=== PATIENT | male | born 1975 | race Caucasian/White ===

== ENCOUNTER 2018-11-05 08:22 | Emergency (ER) | payer OTHER ==
[2018-11-05 08:27] VITALS: RESP 18; TEMP 97.9
[2018-11-05] MEDS ORDERED: SODIUM CHLORIDE 0.9% 2,000 ML IV STA (09:16)
[2018-11-05] MEDS ORDERED: DICYCLOMINE 10 MG/ML 2 ML AMP IM STA (09:16)
[2018-11-05] MEDS ORDERED: ONDANSETRON 4 MG/2 ML VIAL IVP STA (09:16)
[2018-11-05] MEDS ORDERED: PANTOPRAZOLE 40 MG/10 ML VIAL IVP STA (09:16)
--- NOTE | 2018-11-05 09:20 | ED ---
General Adult HPI - General Chief complaint: Nausea/Vomiting/Diarrhea Stated complaint: diarrhea Time Seen by Provider: 11/05/18 09:09 Source: patient, RN notes reviewed Mode of arrival: ambulatory Limitations: no limitations - History of Present Illness Initial comments: Patient is a 42-year-old male presenting to the emergency department with concerns for diarrhea. Onset of symptoms was 4-5 days ago. Patient is having diarrhea 5-6 times per day. Patient is having muscle cramps. No bloody stools. Patient has had some nausea and a couple episodes of vomiting. Patient has had decreased appetite. No abdominal pain. No abdominal cramping. No history of chronic diarrhea. Patient does have chronic reflux however has not had a scope done and stops seen his doctor. Patient also stopped taking his medication for reflux. Patient states he did not feel it was helping. - Related Data Home Medications Medication Instructions Recorded Confirmed Amoxic-Pot Clav 875-125Mg 1 tab PO BID 11/05/18 11/05/18 [Augmentin 875-125] D-Methorphan/PE/Acetaminophen 1 tab PO DAILY 11/05/18 11/05/18 [Theraflu Expressmax Day Caplet] Allergies Allergy/AdvReac Type Severity Reaction Status Date / Time No Known Allergies Allergy Verified 11/05/18 08:37 Review of Systems ROS Statement: Those systems with pertinent positive or pertinent negative responses have been documented in the HPI. ROS Other: All systems not noted in ROS Statement are negative. Constitutional: Denies: fever Eyes: Denies: eye pain ENT: Denies: ear pain Respiratory: Denies: cough, dyspnea Cardiovascular: Denies: chest pain Endocrine: Denies: fatigue Gastrointestinal: Reports: as per HPI, nausea, vomiting, diarrhea. Denies: abdominal pain Genitourinary: Denies: dysuria Musculoskeletal: Denies: back pain Skin: Denies: rash Neurological: Denies: weakness Past Medical History Past Medical History: No Reported History Additional Past Medical History / Comment(s): liver issues History of Any Multi-Drug Resistant Organisms: None Reported Past Surgical History: No Surgical Hx Reported Past Psychological History: No Psychological Hx Reported Smoking Status: Never smoker Past Alcohol Use History: None Reported Past Drug Use History: None Reported General Exam Limitations: no limitations General appearance: alert, in no apparent distress Head exam: Present: atraumatic Eye exam: Present: normal appearance, PERRL ENT exam: Present: normal oropharynx Neck exam: Present: normal inspection Respiratory exam: Present: normal lung sounds bilaterally Cardiovascular Exam: Present: regular rate, normal rhythm Expanded Peripheral pulses: 2+: Posterior Tibialis (R), Posterior Tibialis (L), Dorsalis Pedis (R), Dorsalis Pedis (L) GI/Abdominal exam: Present: soft, normal bowel sounds. Absent: distended, tenderness, guarding, rebound, rigid, pulsatile mass Extremities exam: Present: normal inspection, pedal edema. Absent: calf tenderness Neurological exam: Present: alert Psychiatric exam: Present: normal affect, normal mood Skin exam: Present: normal color Course Vital Signs 11/05/18 08:23 Temperature 97.9 F Pulse Rate 78 Respiratory 18 Rate Blood Pressure 132/83 O2 Sat by Pulse 99 Oximetry - Reevaluation(s) Reevaluation #1: 11/05/18 09:20 Patient states he has been taking his son's old amoxicillin for the diarrhea without improvement. Patient is advised against doing so. Medical Decision Making - Medical Decision Making Patient reevaluated and feeling much better. Patient is requesting discharge home. Patient refuses prescriptions. Patient is updated regarding changes with white blood cell count as well as platelet count. Patient questions if this could be from his previous liver disease years ago. Patient states he can follow-up with [facility] for this. Patient is also advised to follow-up with local primary care physician or the [facility]'s clinic. - Lab Data Result diagrams: 11/05/18 09:12 11/05/18 09:12 Lab Results 11/05/18 11/05/18 Range/Units 09:12 09:12 WBC 2.6 L (3.8-10.6) k/uL RBC 5.21 (4.30-5.90) m/uL Hgb 16.0 (13.0-17.5) gm/dL Hct 45.4 (39.0-53.0) % MCV 87.1 (80.0-100.0) fL MCH 30.6 (25.0-35.0) pg MCHC 35.2 (31.0-37.0) g/dL RDW 12.8 (11.5-15.5) % Plt Count 112 L (150-450) k/uL Neutrophils % (Manual) 38 % Band Neutrophils % 1 % Lymphocytes % (Manual) 37 % Monocytes % (Manual) 23 % Eosinophils % (Manual) 1 % Neutrophils # (Manual) 1.00 L (1.3-7.7) k/uL Lymphocytes # (Manual) 0.96 L (1.0-4.8) k/uL Monocytes # (Manual) 0.60 (0-1.0) k/uL Eosinophils # (Manual) 0.03 (0-0.7) k/uL Nucleated RBCs 0 (0-0) /100 WBC Manual Slide Review Performed RBC Morphology Normal Sodium 139 (137-145) mmol/L Potassium 5.2 H (3.5-5.1) mmol/L Chloride 104 (98-107) mmol/L Carbon Dioxide 27 (22-30) mmol/L Anion Gap 8 mmol/L BUN 9 (9-20) mg/dL Creatinine 0.77 (0.66-1.25) mg/dL Est GFR (CKD-EPI)AfAm >90 (>60 ml/min/1.73 sqM) Est GFR (CKD-EPI)NonAf >90 (>60 ml/min/1.73 sqM) Glucose 91 (74-99) mg/dL Calcium 9.3 (8.4-10.2) mg/dL Total Bilirubin 0.5 (0.2-1.3) mg/dL AST 34 (17-59) U/L ALT 34 (21-72) U/L Alkaline Phosphatase 64 (38-126) U/L Total Protein 7.3 (6.3-8.2) g/dL Albumin 4.3 (3.5-5.0) g/dL Amylase 69 (30-110) U/L Lipase 137 (23-300) U/L Disposition Clinical Impression: Diarrhea Disposition: HOME SELF-CARE Condition: Stable Instructions: Acute Diarrhea (ED) Additional Instructions: Please follow-up with primary care physician in the next couple of days for recheck. You may also [facility]. Also recommend following up with [facility] regarding your previous liver disease. [id number] Imodium as needed. Increase fluid intake. Consider endoscopy. Return for not able to tolerate fluids, pain, fevers, uncontrolled diarrhea, worsening symptoms or other concerns. Is patient prescribed a controlled substance at d/c from ED?: No Referrals: Ahsan Mcmillan MD [STAFF PHYSICIAN] - 1-2 days Nilam Poole MD [STAFF PHYSICIAN] - 1-2 days Time of Disposition: 12:02
[2018-11-05 09:52] LABS: ALT 34 U/L (21-72); AST 34 U/L (17-59); Albumin 4.3 g/dL (3.5-5.0); Alkaline Phosphatase 64 U/L (38-126); Amylase 69 U/L (30-110); Anion Gap 8 mmol/L; Blood Urea Nitrogen 9 mg/dL (9-20); Calcium 9.3 mg/dL (8.4-10.2); Carbon Dioxide 27 mmol/L (22-30); Chloride 104 mmol/L (98-107); Glucose 91 mg/dL (74-99); Lipase 137 U/L (23-300); Potassium 5.2 mmol/L (3.5-5.1); Sodium 139 mmol/L (137-145); Total Bilirubin 0.5 mg/dL (0.2-1.3); Total Protein 7.3 g/dL (6.3-8.2)
[2018-11-05 09:55] LABS: HCT 45.4 % (39.0-53.0); MCH 30.6 pg (25.0-35.0); MCHC 35.2 g/dL (31.0-37.0); MCV 87.1 fL (80.0-100.0); Mean Platelet Volume 7.6; Platelet Count 112 k/uL (150-450); RBC 5.21 m/uL (4.30-5.90); RDW 12.8 % (11.5-15.5); WBC 2.6 k/uL (3.8-10.6)
[2018-11-05 10:12] LABS: Band Neutrophils % 1 %; Eosinophils # (M) 0.03 k/uL (0-0.7); Lymphocytes # (M) 0.96 k/uL (1.0-4.8); Neutrophils % (M) 38 %; Nucleated Red Blood Cells 0 /100 WBC (0-0); Total Cells Counted 100
[2018-11-05 12:07] LABS: Appearance,Urine Clear (Clear); Bilirubin,Urine Negative (Negative); Blood,Urine Negative (Negative); Color,Urine Light Yellow; Glucose,Urine (UA) Negative (Negative); Ketones,Urine Negative (Negative); Leukocyte Esterase,Urine Negative (Negative); Nitrite,Urine Negative (Negative); Protein,Urine Negative (Negative); Specific Gravity,Urine 1.004 (1.001-1.035); Urobilinogen,Urine <2.0 mg/dL (<2.0)
[2018-11-05 12:42] VITALS: BP 118/85; PULSE 62
== END 2018-11-05 12:39 | disposition home or self-care (01) ==
LOC: EC 08:22
DX: R19.7 Diarrhea, unspecified (principal); R11.2 Nausea with vomiting, unspecified; R25.2 Cramp and spasm; Z79.891 Long term (current) use of opiate analgesic; Z79.899 Other long term (current) drug therapy; Z53.20 Procedure and treatment not carried out because of patient's decision for unspecified reasons
CPT/HCPCS: 99284; 96374; 96375; 96361; 96372; 36415; 80053; 82150; 83690; 85025; 81003; J0500; J2405; C9113

== ENCOUNTER 2019-12-20 16:12 | Emergency (ER) | payer OTHER ==
[2019-12-20 16:17] VITALS: RESP 18
[2019-12-20] MEDS ORDERED: SODIUM CHLORIDE 0.9% 500 ML 500 ML IV STA (16:18)
[2019-12-20] MEDS ORDERED: MORPHINE SULFATE 4 MG/ML SYRINGE IV STA (16:27)
--- NOTE | 2019-12-20 16:29 | ED ---
Abdominal Pain HPI - General Chief Complaint: Abdominal Pain Stated Complaint: abd pain Time Seen by Provider: 12/20/19 16:18 Source: patient Mode of arrival: ambulatory Limitations: no limitations - History of Present Illness Initial Comments: Dictation was produced using [employer] dictation software. please excuse any grammatical, word or spelling errors. Chief Complaint: 43-year-old male presents with right inguinal pain History of Present Illness: Patient is a 43-year-old male presents of right inguinal pain. Patient just finished antibiotic treatment treating syphilis. Patient has been having right groin pain since 3 weeks ago. Initially thought that it was lymphadenopathy however his symptoms haven't gone away. Patient s tates it started 2 weeks ago. He was retching when all of a sudden he felt a pop and this bulge was apparent on his right groin area. Patient states he feels slightly nauseous. He does have small caliber stools. Denies any other abdominal pain at this time. The ROS documented in this emergency department record has been reviewed and confirmed by me. Those systems with pertinent positive or negative responses have been documented in the HPI. All other systems are other negative and/or noncontributory. PHYSICAL EXAM: General Impression: Alert and oriented x3, acute distress secondary to pain HEENT: Normocephalic atraumatic, extra-ocular movements intact, pupils equal and reactive to light bilaterally, mucous membranes moist. Cardiovascular: Heart regular rate and rhythm, S1&S2 audible, no murmurs, rubs or gallops Chest: Lungs clear to auscultation bilaterally, no rhonchi, no wheeze, no rales Abdomen: Bowel sounds present, abdomen soft, non-tender, non-distended, no organomegaly, right inguinal mass measuring approximately 2 x 3 cm, no skin erythema overlying the mass, masses tenderness to palpation Musculoskeletal: Pulses present and equal in all extremities, no peripheral edema Motor: no focal deficits noted Neurological: CN II-XII grossly intact, no focal motor or sensory deficits noted Skin: Intact with no visualized rashes Psych: Normal affect and mood ED course: 43-year-old male click breast consistent with inguinal hernia. Signs upon arrival are within acceptable limits. There is concern for strangulated hernia. Laboratory evaluation obtained. CBC, metabolic panel is unremarkable. Urinalysis is negative. CT of the abdomen and pelvis was obtained showing no acute processes. Discussed patient case in detail with Dr. Andres who reviewed image and did not find any acute processes. Patient reevaluated at bedside with no apparent mass suspicious for hernia. Patient asked to Valsalva at bedside. His bilateral groins look symmetrical. Patient's hernia likely reduced here in emergency department. Patient placed on hernia precautions. He'll be dis charged with outpatient referral to general surgery for outpatient hernia care. Return parameters discussed. Patient clear for discharge. - Related Data Home Medications Medication Instructions Recorded Confirmed Amoxic-Pot Clav 875-125Mg 1 tab PO BID 11/05/18 11/05/18 [Augmentin 875-125] D-Methorphan/PE/Acetaminophen 1 tab PO DAILY 11/05/18 11/05/18 [Theraflu Expressmax Day Caplet] Allergies Allergy/AdvReac Type Severity Reaction Status Date / Time No Known Allergies Allergy Verified 12/20/19 16:17 Review of Systems ROS Statement: Those systems with pertinent positive or pertinent negative responses have been documented in the HPI. ROS Other: All systems not noted in ROS Statement are negative. Past Medical History Past Medical History: No Reported History Additional Past Medical History / Comment(s): liver issues History of Any Multi-Drug Resistant Organisms: None Reported Past Surgical History: No Surgical Hx Reported, Orthopedic Surgery Past Psychological History: No Psychological Hx Reported Smoking Status: Never smoker Past Alcohol Use History: None Reported Past Drug Use History: Marijuana General Exam Limitations: no limitations Course Vital Signs 12/20/19 16:15 Temperature 99.2 F Pulse Rate 73 Respiratory 18 Rate Blood Pressure 169/81 O2 Sat by Pulse 98 Oximetry Medical Decision Making - Lab Data Result diagrams: 12/20/19 16:35 12/20/19 16:35 Lab Results 12/20/19 12/20/19 12/20/19 Range/Units 16:35 16:35 16:35 WBC 6.3 (3.8-10.6) k/uL RBC 4.63 (4.30-5.90) m/uL Hgb 13.6 (13.0-17.5) gm/dL Hct 39.9 (39.0-53.0) % MCV 86.2 (80.0-100.0) fL MCH 29.5 (25.0-35.0) pg MCHC 34.2 (31.0-37.0) g/dL RDW 14.1 (11.5-15.5) % Plt Count 215 (150-450) k/uL Neutrophils % 51 % Lymphocytes % 33 % Monocytes % 9 % Eosinophils % 3 % Basophils % 1 % Neutrophils # 3.2 (1.3-7.7) k/uL Lymphocytes # 2.1 (1.0-4.8) k/uL Monocytes # 0.5 (0-1.0) k/uL Eosinophils # 0.2 (0-0.7) k/uL Basophils # 0.1 (0-0.2) k/uL Sodium 139 (137-145) mmol/L Potassium 4.6 (3.5-5.1) mmol/L Chloride 103 (98-107) mmol/L Carbon Dioxide 27 (22-30) mmol/L Anion Gap 9 mmol/L BUN 16 (9-20) mg/dL Creatinine 0.86 (0.66-1.25) mg/dL Est GFR (CKD-EPI)AfAm >90 (>60 ml/min/1.73 sqM) Est GFR (CKD-EPI)NonAf >90 (>60 ml/min/1.73 sqM) Glucose 90 (74-99) mg/dL Plasma Lactic Acid Harley (0.7-2.0) mmol/L Calcium 9.8 (8.4-10.2) mg/dL Total Bilirubin 0.4 (0.2-1.3) mg/dL AST 31 (17-59) U/L ALT 20 (4-49) U/L Alkaline Phosphatase 101 (38-126) U/L Total Protein 8.4 H (6.3-8.2) g/dL Albumin 4.7 (3.5-5.0) g/dL Lipase 154 (23-300) U/L Urine Color Light Yellow Urine Appearance Clear (Clear) Urine pH 7.0 (5.0-8.0) Ur Specific [place] 1.006 (1.001-1.035) Urine Protein Negative (Negative) Urine Glucose (UA) Negative (Negative) Urine Ketones Negative (Negative) Urine Blood Negative (Negative) Urine Nitrite Negative (Negative) Urine Bilirubin Negative (Negative) Urine Urobilinogen <2.0 (<2.0) mg/dL Ur Leukocyte Esterase Negative (Negative) 12/20/19 Range/Units 16:35 WBC (3.8-10.6) k/uL RBC (4.30-5.90) m/uL Hgb (13.0-17.5) gm/dL Hct (39.0-53.0) % MCV (80.0-100.0) fL MCH (25.0-35.0) pg MCHC (31.0-37.0) g/dL RDW (11.5-15.5) % Plt Count (150-450) k/uL Neutrophils % % Lymphocytes % % Monocytes % % Eosinophils % % Basophils % % Neutrophils # (1.3-7.7) k/uL Lymphocytes # (1.0-4.8) k/uL Monocytes # (0-1.0) k/uL Eosinophils # (0-0.7) k/uL Basophils # (0-0.2) k/uL Sodium (137-145) mmol/L Potassium (3.5-5.1) mmol/L Chloride (98-107) mmol/L Carbon Dioxide (22-30) mmol/L Anion Gap mmol/L BUN (9-20) mg/dL Creatinine (0.66-1.25) mg/dL Est GFR (CKD-EPI)AfAm (>60 ml/min/1.73 sqM) Est GFR (CKD-EPI)NonAf (>60 ml/min/1.73 sqM) Glucose (74-99) mg/dL Plasma Lactic Acid Harley 0.6 L (0.7-2.0) mmol/L Calcium (8.4-10.2) mg/dL Total Bilirubin (0.2-1.3) mg/dL AST (17-59) U/L ALT (4-49) U/L Alkaline Phosphatase (38-126) U/L Total Protein (6.3-8.2) g/dL Albumin (3.5-5.0) g/dL Lipase (23-300) U/L Urine Color Urine Appearance (Clear) Urine pH (5.0-8.0) Ur Specific [place] (1.001-1.035) Urine Protein (Negative) Urine Glucose (UA) (Negative) Urine Ketones (Negative) Urine Blood (Negative) Urine Nitrite (Negative) Urine Bilirubin (Negative) Urine Urobilinogen (<2.0) mg/dL Ur Leukocyte Esterase (Negative) Disposition Clinical Impression: Inguinal hernia Disposition: HOME SELF-CARE Condition: Good Instructions (If sedation given, give patient instructions): Inguinal Hernia (ED) Is patient prescribed a controlled substance at d/c from ED?: No Referrals: Sylvester Coburn MD [STAFF PHYSICIAN] - 1-2 days Time of Disposition: 17:53
[2019-12-20 16:47] LABS: Appearance,Urine Clear (Clear); Bilirubin,Urine Negative (Negative); Blood,Urine Negative (Negative); Color,Urine Light Yellow; Glucose,Urine (UA) Negative (Negative); Ketones,Urine Negative (Negative); Leukocyte Esterase,Urine Negative (Negative); Nitrite,Urine Negative (Negative); Protein,Urine Negative (Negative); Specific Gravity,Urine 1.006 (1.001-1.035); Urobilinogen,Urine <2.0 mg/dL (<2.0)
[2019-12-20 16:48] LABS: Basophils # (A) 0.1 k/uL (0-0.2); Basophils % (A) 1 %; Eosinophils # (A) 0.2 k/uL (0-0.7); Eosinophils % (A) 3 %; HCT 39.9 % (39.0-53.0); HGB 13.6 gm/dL (13.0-17.5); Lymphocytes # (A) 2.1 k/uL (1.0-4.8); Lymphocytes % (A) 33 %; MCH 29.5 pg (25.0-35.0); MCHC 34.2 g/dL (31.0-37.0); MCV 86.2 fL (80.0-100.0); Mean Platelet Volume 7.7; Monocytes # (A) 0.5 k/uL (0-1.0); Monocytes % (A) 9 %; Neutrophils # (A) 3.2 k/uL (1.3-7.7); Neutrophils % (A) 51 %; Platelet Count 215 k/uL (150-450); RBC 4.63 m/uL (4.30-5.90); RDW 14.1 % (11.5-15.5); WBC 6.3 k/uL (3.8-10.6)
[2019-12-20 17:04] LABS: ALT 20 U/L (4-49); AST 31 U/L (17-59); African American GFR (CKD) >90 (>60 ml/min/1.73 sqM); Albumin 4.7 g/dL (3.5-5.0); Alkaline Phosphatase 101 U/L (38-126); Anion Gap 9 mmol/L; Blood Urea Nitrogen 16 mg/dL (9-20); Calcium 9.8 mg/dL (8.4-10.2); Carbon Dioxide 27 mmol/L (22-30); Chloride 103 mmol/L (98-107); Glucose 90 mg/dL (74-99); Non-African American GFR(CKD) >90 (>60 ml/min/1.73 sqM); Potassium 4.6 mmol/L (3.5-5.1); Sodium 139 mmol/L (137-145); Total Bilirubin 0.4 mg/dL (0.2-1.3); Total Protein 8.4 g/dL (6.3-8.2)
--- NOTE | 2019-12-20 17:15 | CT ---
EXAMINATION TYPE: CT abdomen pelvis w con DATE OF EXAM: 12/20/2019 COMPARISON: None. HISTORY: Right lower quadrant pain. Possible hernia. CT DLP: 838 mGycm, Automated Exposure Control for Dose Reduction was Utilized. CONTRAST: CT scan of the abdomen and pelvis is performed without oral but with IV Contrast, patient injected wi th 100 mL of Isovue 300. FINDINGS: LUNG BASES: No significant abnormality is appreciated. LIVER/GB: Contracted gallbladder. PANCREAS: No significant abnormality is seen. SPLEEN: No significant abnormality is seen. ADRENALS: No significant abnormality is seen. KIDNEYS: Symmetric cortical medullary uptake and excretion without hydronephrosis seen bilaterally. BOWEL: Suboptimal evaluation of bowel without enteric contrast and patient having very little intra-a bdominal fat. No suspicious small or large bowel dilatation is seen. Debris-filled stomach suggest re cent meal ingestion. Normal-appearing appendix seen medially from the cecum for reference coronal liz ge 48 normal portion is noted. PROSTATE/SEMINAL VESICLES: No gross abnormality seen. LYMPH NODES: No greater than 1cm abdominal or pelvic lymph nodes are appreciated. Some prominent but subcentimeter lymph nodes in the bilateral groin region OSSEOUS STRUCTURES: Transitional type vertebra lumbosacral junction. OTHER: No significant additional abnormality is seen. IMPRESSION: No significant acute finding is seen to account for patient's clinical symptoms. No CT e vidence for acute appendicitis. No suspicious hernia identified.
[2019-12-20 18:04] VITALS: BP 123/78; PULSE 55; TEMP 98.2
== END 2019-12-20 18:04 | disposition home or self-care (01) ==
LOC: EC 16:12
DX: K40.90 Unilateral inguinal hernia, without obstruction or gangrene, not specified as recurrent (principal); Z53.20 Procedure and treatment not carried out because of patient's decision for unspecified reasons
CPT/HCPCS: 36415; 80053; 83605; 83690; 85025; 81003; 74177; 99284; 96360; Q9967

== ENCOUNTER 2021-04-06 16:21 | Emergency (ER) | payer OTHER ==
[2021-04-06] MEDS ORDERED: MORPHINE SULFATE 4 MG/ML SYRINGE IV STA (16:34)
[2021-04-06] MEDS ORDERED: SODIUM CHLORIDE 0.9% 1,000 ML IV STA (16:35)
[2021-04-06] MEDS ORDERED: PROPOFOL 10 MG/ML 20 ML VIAL IV ONE (16:35)
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
[2021-04-06 16:39] VITALS: RESP 18; TEMP 98.8
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
[2021-04-06 17:22] VITALS: BP 143/87; PULSE 77
[2021-04-06 17:27] LABS: Basophils # (A) 0.1 k/uL (0-0.2); Basophils % (A) 1 %; Eosinophils # (A) 0.1 k/uL (0-0.7); Eosinophils % (A) 1 %; HCT 44.1 % (39.0-53.0); HGB 15.5 gm/dL (13.0-17.5); Lymphocytes # (A) 1.5 k/uL (1.0-4.8); Lymphocytes % (A) 19 %; MCH 30.4 pg (25.0-35.0); MCHC 35.1 g/dL (31.0-37.0); MCV 86.5 fL (80.0-100.0); Monocytes # (A) 0.7 k/uL (0-1.0); Monocytes % (A) 9 %; Neutrophils # (A) 5.5 k/uL (1.3-7.7); Neutrophils % (A) 70 %; Platelet Count 160 k/uL (150-450); WBC 7.8 k/uL (3.8-10.6)
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
[2021-04-06 17:36] LABS: ALT 18 U/L (4-49); AST 29 U/L (17-59); African American GFR (CKD) >90 (>60 ml/min/1.73 sqM); Albumin 4.2 g/dL (3.5-5.0); Alcohol <10 mg/dL; Alkaline Phosphatase 73 U/L (38-126); Anion Gap 7 mmol/L; Blood Urea Nitrogen 16 mg/dL (9-20); Calcium 9.1 mg/dL (8.4-10.2); Carbon Dioxide 27 mmol/L (22-30); Chloride 105 mmol/L (98-107); Glucose 90 mg/dL (74-99); Non-African American GFR(CKD) >90 (>60 ml/min/1.73 sqM); Potassium 3.8 mmol/L (3.5-5.1); Sodium 139 mmol/L (137-145); Total Bilirubin 0.6 mg/dL (0.2-1.3); Total Protein 6.9 g/dL (6.3-8.2)
[2021-04-06 17:45] LABS: INR 0.9 (<1.2); Partial Thromboplastin Time 21.6 sec (22.0-30.0); Prothrombin Time 10.2 sec (9.0-12.0)
== END 2021-04-06 18:00 | disposition home or self-care (01) ==
LOC: EC 16:21
DX: S82.832A Other fracture of upper and lower end of left fibula, initial encounter for closed fracture (principal); F12.90 Cannabis use, unspecified, uncomplicated; V89.0XXA Person injured in unspecified motor-vehicle accident, nontraffic, initial encounter; Y92.481 Parking lot as the place of occurrence of the external cause
CPT/HCPCS: 36415; 93005; 86900; 86901; 80053; 84484; 85025; 85610; 85730; 86850; 80320; 72170; 73600; 71045; 99284; 96374; 96375; 96361; 27788; J2270; J2704

== ENCOUNTER 2022-10-04 16:20 | Emergency (ER) | payer OTHER ==
[2022-10-04] MEDS ORDERED: DIPH,PERTUS(ACELL)TETVAC-LF 0.5 ML VIAL IM ONE (17:38)
[2022-10-04] MEDS ORDERED: RABIES IMM GLOB 300 UNIT/2 ML VIAL IM ONE (17:41)
[2022-10-04] MEDS ORDERED: RABIES VACCINE (PCEC) 2.5 UNIT KIT IM ONE (17:41)
[2022-10-04] MEDS ORDERED: IBUPROFEN 800 MG TAB PO STA (17:41)
[2022-10-04] MEDS ORDERED: AMOXIC-POT CLAV 875-125MG 1 EACH TAB PO STA (17:48)
[2022-10-04] MEDS ORDERED: ACET/COD 300 MG/30 MG STARTER PACK 6 TAB BTL PO STA (17:51)
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
--- NOTE | 2022-10-04 18:04 | XR ---
EXAMINATION TYPE: XR forearm LT DATE OF EXAM: 10/04/2022 5:54 PM INDICATION: Patient age:Male; 46 years old; Reason for study: dog bite; COMPARISON: None TECHNIQUE: The left forearm was examined in AP and lateral projections. FINDINGS: Gas seen along the volar aspect of the distal forearm. No radiopaque foreign bodies. No acu te osseous pathology, soft tissue swelling or joint dislocations are seen. IMPRESSION: 1. No evidence of acute fracture. 2. No radiopaque foreign bodies.
[2022-10-04 19:21] VITALS: BP 156/93; PULSE 72; RESP 18; TEMP 99.1
== END 2022-10-04 19:21 | disposition home or self-care (01) ==
LOC: EC 16:20
DX: M79.632 Pain in left forearm (principal); F12.90 Cannabis use, unspecified, uncomplicated; Z29.14 Encounter for prophylactic rabies immune globulin; W54.0XXA Bitten by dog, initial encounter
CPT/HCPCS: 90377; 90471; 90675; 96372; 99283

== ENCOUNTER → 2022-11-23 | Outpatient (CLI) | payer OTHER ==
--- NOTE | 2022-11-23 14:05 | XR ---
EXAMINATION TYPE: XR hand complete LT DATE OF EXAM: 11/23/2022 COMPARISON: NONE HISTORY: Pain TECHNIQUE: Three views are submitted. FINDINGS: The osseous structures are intact. The joint spaces are preserved and there is no acute fracture or dislocation. Small exostosis involving the first metacarpal. There is a tiny metallic foreign body o verlying the proximal phalanx fourth digit. IMPRESSION: 1. No definite acute fracture or dislocation if symptoms persist, follow-up study in 7 to 10 days wo uld be suggested. 2. There is a tiny metallic foreign body overlying the proximal phalanx of the fourth digit.
== END | disposition home or self-care (01) ==
LOC: RADXRMAIN 13:41
PROVIDERS: ATTEND Family Medicine
DX: S60.932A Unspecified superficial injury of left thumb, initial encounter (principal); S60.455A Superficial foreign body of left ring finger, initial encounter

== ENCOUNTER 2023-04-01 20:27 | Emergency (ER) | payer OTHER ==
[2023-04-01] MEDS ORDERED: ONDANSETRON 4 MG/2 ML VIAL IVP STA ×2 (20:33→22:06)
[2023-04-01] MEDS ORDERED: SODIUM CHLORIDE 0.9% 1,000 ML IV STA (20:33)
[2023-04-01] MEDS ORDERED: HYDROmorphone 1 MG/ML 1 ML SYRINGE IVP STA ×2 (20:33→22:06)
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
[2023-04-01 20:35] LABS: Glucose,Whole Blood 107 mg/dL (70-110)
[2023-04-01 20:42] VITALS: BP 163/88; PULSE 73; RESP 18; TEMP 98.4
[2023-04-01 20:49] LABS: Basophils % (A) 1 %; Eosinophils # (A) 0.1 k/uL (0-0.7); Eosinophils % (A) 1 %; HCT 42.1 % (39.0-53.0); HGB 14.2 gm/dL (13.0-17.5); Lymphocytes # (A) 2.4 k/uL (1.0-4.8); Lymphocytes % (A) 34 %; MCH 30.4 pg (25.0-35.0); MCHC 33.7 g/dL (31.0-37.0); MCV 90.3 fL (80.0-100.0); Mean Platelet Volume 8.3; Monocytes # (A) 0.6 k/uL (0-1.0); Monocytes % (A) 8 %; Neutrophils # (A) 3.8 k/uL (1.3-7.7); Neutrophils % (A) 52 %; Platelet Count 177 k/uL (150-450); RBC 4.66 m/uL (4.30-5.90); RDW 12.9 % (11.5-15.5); WBC 7.2 k/uL (3.8-10.6)
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
[2023-04-01 20:58] LABS: Anion Gap 13 mmol/L; Blood Urea Nitrogen 15 mg/dL (9-20); Carbon Dioxide 23 mmol/L (22-30); Chloride 101 mmol/L (98-107); Glucose 101 mg/dL (74-99); Potassium 3.6 mmol/L (3.5-5.1); Sodium 137 mmol/L (137-145)
[2023-04-01 20:59] LABS: ALT 22 U/L (4-49); AST 32 U/L (17-59); African American GFR (CKD) >90 (>60 ml/min/1.73 sqM); Albumin 4.5 g/dL (3.5-5.0); Alcohol 80 mg/dL; Alkaline Phosphatase 70 U/L (38-126); Calcium 9.2 mg/dL (8.4-10.2); Non-African American GFR(CKD) >90 (>60 ml/min/1.73 sqM); Total Bilirubin 0.5 mg/dL (0.2-1.3); Total Protein 7.7 g/dL (6.3-8.2)
[2023-04-01 21:07] LABS: INR 0.9 (<1.2); Partial Thromboplastin Time 22.3 sec (22.0-30.0); Prothrombin Time 10.1 sec (9.0-12.0)
[2023-04-01] MEDS ORDERED: DIPH,PERTUS(ACELL)TETVAC-LF 0.5 ML VIAL IM ONE (21:36)
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
[2023-04-02 01:44] LABS: Appearance,Urine Clear (Clear); Bilirubin,Urine Negative (Negative); Blood,Urine Negative (Negative); Color,Urine Light Yellow; Glucose,Urine (UA) Negative (Negative); Ketones,Urine Negative (Negative); Leukocyte Esterase,Urine Negative (Negative); Nitrite,Urine Negative (Negative); Protein,Urine Negative (Negative); Specific Gravity,Urine 1.021 (1.001-1.035); Urobilinogen,Urine <2.0 mg/dL (<2.0)
[2023-04-02 02:04] LABS: Amphetamine Screen,Urine Detected (NotDetected); Barbiturate Screen,Urine Not Detected (NotDetected); Benzodiazepines Screen,Urine Not Detected (NotDetected); Cocaine Screen,Urine Not Detected (NotDetected); Methadone Screen, Urine Not Detected (NotDetected); Opiate Screen,Urine Not Detected (NotDetected); Oxycodone Screen, Urine Not Detected (NotDetected); Phencyclidine Screen,Urine Not Detected (NotDetected); Tricyclic Antidepressant,Urine Not Detected (NotDetected); Urn Cannabinoid Scrn Detected (NotDetected)
== END 2023-04-01 22:25 | disposition other institution (70) ==
LOC: EC 20:27
DX: S02.91XA Unspecified fracture of skull, initial encounter for closed fracture (principal); S06.6X9A Traumatic subarachnoid hemorrhage with loss of consciousness of unspecified duration, initial encounter; S22.32XA Fracture of one rib, left side, initial encounter for closed fracture; Z23 Encounter for immunization; V49.40XA Driver injured in collision with unspecified motor vehicles in traffic accident, initial encounter
CPT/HCPCS: 36415; 93005; 86900; 86901; 80053; 84484; 85025; 85610; 85730; 86850; 81003; 72170; 71045; 72125; 70486; 70450; 71260; 74177; 90715; 99291; 96365; 96375 ×2; 96376 ×2; 96361; 90471; G0480; J0690; J2405; J1170; Q9967; 80306; 80320

== ENCOUNTER 2024-07-24 12:50 | Observation (INO) | payer OTHER ==
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
[2024-07-24 14:06] LABS: Basophils % (A) 0 %; Eosinophils # (A) 0.1 k/uL (0-0.7); Eosinophils % (A) 1 %; HCT 41.9 % (39.0-53.0); HGB 13.9 gm/dL (13.0-17.5); Lymphocytes # (A) 1.1 k/uL (1.0-4.8); Lymphocytes % (A) 14 %; MCH 30.8 pg (25.0-35.0); MCHC 33.3 g/dL (31.0-37.0); MCV 92.6 fL (80.0-100.0); Mean Platelet Volume 8.4; Monocytes # (A) 0.6 k/uL (0-1.0); Monocytes % (A) 7 %; Neutrophils % (A) 76 %; Platelet Count 165 k/uL (150-450); RBC 4.52 m/uL (4.30-5.90); RDW 12.3 % (11.5-15.5)
[2024-07-24] MEDS: AMPICILLIN-SULBACTAM 3 GM in SODIUM CHLORIDE 0.9% 100 ML IVPB STA (14:07)
[2024-07-24 14:16] LABS: ALT 23 U/L (4-49); AST 30 U/L (17-59); African American GFR (CKD) >90 (>60 ml/min/1.73 sqM); Albumin 4.1 g/dL (3.5-5.0); Alkaline Phosphatase 69 U/L (38-126); Anion Gap 6 mmol/L; Blood Urea Nitrogen 12 mg/dL (9-20); Calcium 9.3 mg/dL (8.4-10.2); Carbon Dioxide 25 mmol/L (22-30); Chloride 107 mmol/L (98-107); Glucose 123 mg/dL (74-99); Non-African American GFR(CKD) >90 (>60 ml/min/1.73 sqM); Potassium 4.1 mmol/L (3.5-5.1); Sodium 138 mmol/L (137-145)
[2024-07-24] MEDS ORDERED: IBUPROFEN 400 MG TAB PO PRN (15:43)
[2024-07-24] MEDS ORDERED: ACETAMINOPHEN TAB 325 MG TAB PO PRN (15:43)
[2024-07-24] MEDS ORDERED: NALOXONE 0.4 MG/ML 1 ML VIAL IV PRN (15:43)
[2024-07-24] MEDS: KETOROLAC 15 MG/ML 1 ML VIAL IVP PRN (15:53)
[2024-07-24] MEDS: amLODIPine 5 MG TAB PO SCH (17:46)
[2024-07-24] MEDS: AMPICILLIN-SULBACTAM 3 GM in SODIUM CHLORIDE 0.9% 100 ML IVPB SCH (17:46)
[2024-07-24] MEDS: FAMOTIDINE 20 MG TAB PO SCH (20:10)
[2024-07-24] MEDS: MELATONIN 5 MG TABLET PO PRN (20:10)
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
--- NOTE | 2024-07-25 08:45 | P.CONS ---
History of Present Illness - Reason for Consult Consult date: 07/24/24 Infected dog bite Requesting physician: Torsten Triana - Chief Complaint Right arm swelling redness drainage x 1 day - History of Present Illness Patient is a 48-year-old male with a past medical history significant for traumatic brain injury in this patient apparently has been bitten by his dog in the right arm that happened 2 days before presentation to the hospital patient was trying to break a fight between the 2 dogs patient post injury was seen at [facility] with the patient was eval by orthopedic surgeon did have sutures placed to the laceration patient subsequently noticed to have increasing swelling and drainage from the right arm for the patient was advised to go to the hospital by his primary care physician patient denies having any fever or any chills he is breathing comfortably has been complaining of pain to the right upper extremity to be mostly sharp moderate intensity without any radiation with associated swelling redness and did have some drainage mostly clear patient denies having any nausea no vomiting abdominal pain or any diarrhea on presentation to the hospital the patient was afebrile no fever tachycardia subsequently patient was not tachycardic hypotensive or hypoxic patient did have a white count of 8.0 creatinine 0.75 liver isms are normal patient was started on Unasyn infectious disease was consulted for further management of antibiotic therapy Review of Systems Positive point and negatives has been mentioned in the HPI, complete review of systems was performed and all other systems are negative Past Medical History Past Medical History: No Reported History Additional Past Medical History / Comment(s): liver issues, TBI, brain bleed History of Any Multi-Drug Resistant Organisms: None Reported Past Surgical History: No Surgical Hx Reported, Orthopedic Surgery Additional Past Surgical History / Comment(s): broken ribs and left clavicle, hairline fx to skull, tibia fx Past Psychological History: No Psychological Hx Reported Smoking Status: Never smoker Past Alcohol Use History: None Reported Past Drug Use History: Marijuana Medications and Allergies Home Medications Medication Instructions Recorded Confirmed Type Amoxic-Pot Clav 875-125Mg 1 tab PO Q12HR 07/24/24 07/24/24 History [Augmentin 875-125] Ergocalciferol (Vitamin D2) 1,250 mcg PO Q7D 07/24/24 07/24/24 History [Drisdol (50,000 Iu)] HYDROcodone/APAP 5-325MG [Clinton 1 - 2 tab PO DIRECTED PRN 07/24/24 07/24/24 History 5-325] Ibuprofen [Motrin] 800 mg PO Q6H PRN 07/24/24 07/24/24 History Silver Sulfadiazine [Silver 1 applic TOPICAL DIRECTED 07/24/24 07/24/24 History Sulfadiazine 1%] cefaDROXiL [Duricef] 500 mg PO Q12HR 07/24/24 07/24/24 History Allergies Allergy/AdvReac Type Severity Reaction Status Date / Time No Known Allergies Allergy Verified 07/24/24 16:58 Physical Exam Vitals: Vital Signs Temp Pulse Resp BP Pulse Ox 07/24/24 13:04 97.5 F L 65 16 138/88 99 Intake and Output 07/24/24 07/24/24 07/24/24 06:59 14:59 22:59 Other: Weight 82.1 kg GENERAL DESCRIPTION: Middle-aged male lying in bed, no distress. No tachypnea or accessory muscle of respiration use. HEENT: Shows Pallor , no scleral icterus. Oral mucous membrane is dry. No pharyngeal erythema or thrush NECK: Trachea central, no thyromegaly. LUNGS: Unlabored breathing. Clear to auscultation anteriorly. No wheeze or crackle. HEART: S1, S2, regular rate and rhythm. No loud murmur ABDOMEN: Soft, no tenderness , guarding or rigidity, no organomegaly EXTREMITIES: Right forearm did have multiple laceration that has been stitched with minimal swelling redness no foul-smelling drainage SKIN: No rash, no masses palpable. NEUROLOGICAL: The patient is awake, alert, oriented x3, mood and affect normal. Results CBC & Chem 7: 07/24/24 13:50 07/24/24 13:50 Labs: Abnormal Lab Results - Last 24 Hours (Table) 07/24/24 07/24/24 Range/Units 13:50 13:50 Glucose 123 H (74-99) mg/dL Plasma Lactic Acid Harley 0.6 L (0.7-2.0) mmol/L Assessment and Plan (1) Infected dog bite Current Visit: Yes Status: Acute Code(s): W54.0XXA - BITTEN BY DOG, INITIAL ENCOUNTER; L08.9 - LOCAL INFECTION OF THE SKIN AND SUBCUTANEOUS TISSUE, UNSP SNOMED Code(s): 590273145 (2) Right forearm cellulitis Current Visit: Yes Status: Acute Code(s): L03.113 - CELLULITIS OF RIGHT UPPER LIMB SNOMED Code(s): 97704637553897297 Plan: 1patient presented to hospital with right upper extremity swelling and redness along with drainage and this patient has been bitten by his dog 2 days prior to presentation to the hospital concerning for right upper extremity cellulitis related to his dog bite and will need to cover for the polymicrobial benedicto associated with dog bite. 2patient has been advised Unasyn 3 g every 6 hours to continue. We will follow on clinical condition and cultures to further adjust medication if needed Thank you for this consultation we will follow the patient along with you Dictation was produced using [employer] dictation software. please excuse any grammatical, word or spelling errors. Time with Patient: Greater than 30
--- NOTE | 2024-07-25 10:01 | P.PN ---
Subjective Progress Note Date: 07/25/24 Principal diagnosis: Infected dog bite Cellulitis right forearm Sepsis electrolyte Hypertension Chronic insomnia Sleep disordered breathing and sleep apnea July, patient seen eval examined during rounds labs reviewed medications reviewed care plan discussed, patient right forearm is covered with dressing slightly soaked though, pain is controlled with Toradol, labs not don afebrile saturation is 98% room air patient is getting IV Unasyn infectious disease following recommendation noted appreciated Review of records revealed that patient is a 48-year-old male with a past medical history significant for traumatic brain injury in this patient apparently has been bitten by his dog in the right arm that happened 2 days before presentation to the hospital patient was trying to break a fight between the 2 dogs patient post injury was seen at [facility] with the patient was eval by orthopedic surgeon did have sutures placed to the laceration patient subsequently noticed to have increasing swelling and drainage from the right arm for the patient was advised to go to the hospital by his primary care physician patient denies having any fever or any chills he is breathing comfortably has been complaining of pain to the right upper extremity to be mostly sharp moderate intensity without any radiation with associated swelling r edness and did have some drainage mostly clear patient denies having any nausea no vomiting abdominal pain or any diarrhea on presentation to the hospital the patient was afebrile no fever tachycardia subsequently patient was not tachycardic hypotensive or hypoxic patient did have a white count of 8.0 creatinine 0.75 liver isms are normal patient was started on Unasyn infectious disease was consulted for further management of antibiotic therapy patient has a history of insomnia as well as a EDS and snoring, patient would benefit from sleep study as outpatient Objective - Vital Signs Vital signs: Vital Signs Temp 98.2 F 07/25/24 07:41 Pulse 68 07/25/24 08:33 Resp 16 07/25/24 08:33 BP 117/72 07/25/24 07:41 Pulse Ox 98 07/25/24 07:41 FiO2 Intake & Output 07/24/24 07/25/24 07/25/24 18:59 06:59 18:59 Weight 82.1 kg Other: # Voids 3 3 - Constitutional General appearance: Present: average body habitus, disheveled - EENT Eyes: Present: EOMI, PERRLA ENT: Present: normal oropharynx Ears: bilateral: normal - Neck Carotids: bilateral: upstroke normal Thyroid: bilateral: normal size - Respiratory Respiratory: bilateral: CTA - Cardiovascular Rhythm: regular Heart sounds: normal: S1, S2 - Integumentary Integumentary: Present: normal turgor - Neurologic Neurologic: Present: CNII-XII intact - Musculoskeletal Musculoskeletal: Present: gait normal - Psychiatric Psychiatric: Present: A&O x's 3, appropriate affect, intact judgment & insight - Labs CBC & Chem 7: 07/24/24 13:50 07/24/24 13:50 Labs: Abnormal Lab Results - Last 24 Hours (Table) 07/24/24 07/24/24 Range/Units 13:50 13:50 Glucose 123 H (74-99) mg/dL Plasma Lactic Acid Harley 0.6 L (0.7-2.0) mmol/L Assessment and Plan Assessment: Infected dog bite Cellulitis right forearm Sepsis electrolyte History of traumatic brain injury Hypertension Chronic insomnia Sleep disordered breathing and sleep apnea Plan: Continue IV Unasyn Pain control with Tylenol and Toradol Continue melatonin for chronic insomnia Sleep study as outpatient DVT prophylaxis subcu heparin
--- NOTE | 2024-07-25 14:24 | P.PN ---
Subjective Progress Note Date: 07/25/24 Principal diagnosis: Reason for follow-up is right upper extremity dog bite cellulitis Patient is a 48-year-old male with a past medical history significant for traumatic brain injury presenting to the hospital right upper extremity remedy swelling redness and drainage in this patient who recently did have a dog bite with laceration stitched at [facility]. On today's evaluation that is 07/25/2024, Patient is afebrile patient is currently on room air and denies having any shortness of breath, the patient denies any chest pain or cough, the patient denies any nausea vomiting did not have any abdominal pain and no diarrhea patient pain to the right upper extre mity has decreased drainage has decreased as well. No new lab has been obtained today Objective - Vital Signs Vital signs: Vital Signs Temp 98.2 F 07/25/24 07:41 Pulse 68 07/25/24 08:33 Resp 16 07/25/24 08:33 BP 117/72 07/25/24 07:41 Pulse Ox 98 07/25/24 07:41 FiO2 Intake & Output 07/24/24 07/25/24 07/25/24 18:59 06:59 18:59 Weight 82.1 kg Other: # Voids 3 3 - Exam GENERAL DESCRIPTION: Middle-age male lying in bed in no distress RESPIRATORY SYSTEM: Unlabored breathing , decreased breath sounds at bases HEART: S1 S2 regular rate and rhythm , ABDOMEN: Soft , no tenderness EXTREMITIES: Right forearm swelling redness has decreased less drainage - Labs CBC & Chem 7: 07/24/24 13:50 07/24/24 13:50 Labs: Abnormal Lab Results - Last 24 Hours (Table) 07/24/24 07/24/24 Range/Units 13:50 13:50 Glucose 123 H (74-99) mg/dL Plasma Lactic Acid Harley 0.6 L (0.7-2.0) mmol/L Assessment and Plan (1) Infected dog bite Current Visit: Yes Status: Acute Code(s): W54.0XXA - BITTEN BY DOG, INITIAL ENCOUNTER; L08.9 - LOCAL INFECTION OF THE SKIN AND SUBCUTANEOUS TISSUE, UNSP SNOMED Code(s): 872100320 (2) Right forearm cellulitis Current Visit: Yes Status: Acute Code(s): L03.113 - CELLULITIS OF RIGHT UPPER LIMB SNOMED Code(s): 80738146793629677 Plan: 1patient presented to hospital with right upper extremity swelling and redness along with drainage and this patient has been bitten by his dog 2 days prior to presentation to the hospital concerning for right upper extremity cellulitis related to his dog bite and will need to cover for the polymicrobial benedicto associated with dog bite. 2patient to continue with IV Unasyn for another 24 hours before transitioning t o oral antibiotics multiple question concern answered Dictation was produced using [employer] dictation software. please excuse any grammatical, word or spelling errors. Time with Patient: Less than 30
[2024-07-25] MEDS: HEPARIN SODIUM,PORCINE 5,000 UNIT/ML 1 ML VIAL SQ SCH (20:13)
[2024-07-26 08:19] VITALS: RESP 16
--- NOTE | 2024-07-26 15:06 | P.DS ---
Providers Date of admission: 07/24/24 16:03 Expected date of discharge: 07/26/24 Attending physician: Tal Niño Consults: 07/24/24 15:43 Consult Physician Urgent Consulting Provider: Izabel Ferreira Consult Reason/Comments: Infected dog bite Do you want consulting provider notified?: Yes Primary care physician: [facility] Course: July 26, 2024, patient seen evaluate examined during rounds, minimal pain, patient has been cleared by infectious disease services per outpatient oral antibiotics patient successfully finished IV antibiotics. Currently pain contro lled with Tylenol, patient is on IV Unasyn, Norvasc, DVT prophylaxis, Toradol and melatonin. Blood cultures no growth in 24 hours July, patient seen eval examined during rounds labs reviewed medications reviewed care plan discussed, patient right forearm is covered with dressing slightly soaked though, pain is controlled with Toradol, labs not don afebrile saturation is 98% room air patient is getting IV Unasyn infectious disease following recommendation noted appreciated Review of records revealed that patient is a 48-year-old male with a past medical history significant for traumatic brain injury in this patient apparently has been bitten by his dog in the right arm that happened 2 days before presentation to the hospital patient was trying to break a fight between the 2 dogs patient post injury was seen at [facility] with the patient was eval by orthopedic surgeon did have sutures placed to the laceration patient subsequently noticed to have increasing swelling and drainage from the right arm for the patient was advised to go to the hospital by his primary care physician patient denies having any fever or any chills he is breathing comfor tably has been complaining of pain to the right upper extremity to be mostly sharp moderate intensity without any radiation with associated swelling redness and did have some drainage mostly clear patient denies having any nausea no vomiting abdominal pain or any diarrhea on presentation to the hospital the patient was afebrile no fever tachycardia subsequently patient was not tachycardic hypotensive or hypoxic patient did have a white count of 8.0 creatinine 0.75 liver isms are normal patient was started on Unasyn infectious disease was consulted for further management of antibiotic therapy patient has a history of insomnia as well as a EDS and snoring, patient would benefit from sleep study as outpatient Assessment: Infected dog bite Cellulitis right forearm Sepsis electrolyte History of traumatic brain injury Hypertension Chronic insomnia Sleep disordered breathing and sleep apnea Health Concerns: 9 Patient Condition at Discharge: Good Plan - Discharge Summary Discharge Rx Participant: Yes New Discharge Prescriptions: New Amoxic-Pot Clav 875-125Mg [Augmentin 875-125] 1 tab PO Q12HR 10 Days #20 tab Discontinued Amoxic-Pot Clav 875-125Mg [Augmentin 875-125] 1 tab PO Q12HR cefaDROXiL [Duricef] 500 mg PO Q12HR No Action Silver Sulfadiazine [Silver Sulfadiazine 1%] 1 applic TOPICAL DIRECTED HYDROcodone/APAP 5-325MG [[place] 5-325] 1 - 2 tab PO DIRECTED PRN PRN Reason: Pain Ergocalciferol (Vitamin D2) [Drisdol (50,000 Iu)] 1,250 mcg PO Q7D Ibuprofen [Motrin] 800 mg PO Q6H PRN PRN Reason: Pain Or Fever > 100.5 Discharge Medication List Ergocalciferol (Vitamin D2) [Drisdol (50,000 Iu)] 1,250 mcg PO Q7D 07/24/24 [History] HYDROcodone/APAP 5-325MG [[place] 5-325] 1 - 2 tab PO DIRECTED PRN 07/24/24 [History] Ibuprofen [Motrin] 800 mg PO Q6H PRN 07/24/24 [History] Silver Sulfadiazine [Silver Sulfadiazine 1%] 1 applic TOPICAL DIRECTED 07/24/24 [History] Amoxic-Pot Clav 875-125Mg [Augmentin 875-125] 1 tab PO Q12HR 10 Days #20 tab 07/26/24 [Rx] Follow up Appointment(s)/Referral(s): Tal Niño MD [Primary Care Provider] - 1-2 days Eric Posey MD [STAFF PHYSICIAN] - 1 Week Izabel Ferreira MD [STAFF PHYSICIAN] - 1 Week
--- NOTE | 2024-07-26 15:21 | P.PN ---
Subjective Progress Note Date: 07/26/24 Principal diagnosis: Reason for follow-up is right upper extremity dog bite cellulitis Patient is a 48-year-old male with a past medical history significant for traumatic brain injury presenting to the hospital right upper extremity remedy swelling redness and drainage in this patient who recently did have a dog bite with laceration stitched at [facility]. On today's evaluation that is 07/26/2024, patient has been afebrile, patient is breathing comfortably and is currently on room air, patient denies having any significant cough no chest pain, patient denies nausea vomiting or diarrhea and no abdominal pain, the patient pain to the right forearm has decreased intensity and has been insisting on going home. No new lab has been obtained today blood culture has been pending Objective - Vital Signs Vital signs: Vital Signs Temp 97.5 F L 07/26/24 07:00 Pulse 65 07/26/24 07:00 Resp 16 07/26/24 07:00 BP 119/79 07/26/24 07:00 Pulse Ox 100 07/26/24 07:00 FiO2 Intake & Output 07/25/24 07/26/24 07/26/24 18:59 06:59 18:59 Intake Total 20 480 120 Balance 20 480 120 Intake: Intake, IV Titration 20 Amount Ampicillin-Sulbactam 3 gm 20 In Sodium Chloride 0.9% 100 ml @ 200 mls/hr IVPB Q6HR [facility] Rx#:[id number] Oral 480 120 Other: Voiding Method Toilet # Voids 3 2 - Exam GENERAL DESCRIPTION: Middle-age male lying in bed in no distress RESPIRATORY SYSTEM: Unlabored breathing , decreased breath sounds at bases HEART: S1 S2 regular rate and rhythm , ABDOMEN: Soft , no tenderness EXTREMITIES: Right forearm swelling redness has decreased less drainage - Labs CBC & Chem 7: 07/24/24 13:50 07/24/24 13:50 Labs: Microbiology - Last 24 Hours (Table) 07/24/24 13:50 Blood Culture - Preliminary Blood Assessment and Plan (1) Infected dog bite Current Visit: Yes Status: Acute Code(s): W54.0XXA - BITTEN BY DOG, INITIAL ENCOUNTER; L08.9 - LOCAL INFECTION OF THE SKIN AND SUBCUTANEOUS TISSUE, UNSP SNOMED Code(s): 016605880 (2) Right forearm cellulitis Current Visit: Yes Status: Acute Code(s): L03.113 - CELLULITIS OF RIGHT UPPER LIMB SNOMED Code(s): 90513130940521562 Plan: 1patient presented to hospital with right upper extremity swelling and redness along with drainage and this patient has been bitten by his dog 2 days prior to presentation to the hospital concerning for right upper extremity cellulitis related to his dog bite and will need to cover for the polymicrobial benedicto associated with dog bite. 2patient has shown clinical improvement on Unasyn he will finish therapy with oral Augmentin prescription has been sent to the pharmacy and close outpatient follow-up Dictation was produced using [employer] dictation software. please excuse any grammatical, word or spelling errors. Time with Patient: Less than 30
[2024-07-26 16:46] VITALS: BP 125/78; PULSE 68; TEMP 98.2
== END 2024-07-26 15:22 | disposition home or self-care (01) ==
LOC: EC 12:50 → 1SOBS 16:03 → 6NMEDSUR 07-25 17:28
PROVIDERS: ADMIT Family Medicine; ATTEND Family Medicine
DX: L03.113 Cellulitis of right upper limb (principal); S41.151A Open bite of right upper arm, initial encounter; W54.0XXA Bitten by dog, initial encounter; I10 Essential (primary) hypertension; F51.04 Psychophysiologic insomnia; G47.30 Sleep apnea, unspecified; Z87.820 Personal history of traumatic brain injury
CPT/HCPCS: 96366 ×4; 96372; 96376 ×2; 96365; 96375; 99284; 36415; 80053; 83605; 85025; 87040; G0378 ×3; J1644; J0295 ×3; J1885 ×2

== ENCOUNTER 2024-08-05 09:45 | Emergency (ER) | payer OTHER ==
[2024-08-05 09:57] VITALS: TEMP 98.1
--- NOTE | 2024-08-05 10:19 | ED ---
Lower Extremity Injury HPI - General Chief Complaint: Extremity Injury, Lower Stated Complaint: knee injury Time Seen by Provider: 08/05/24 09:57 Source: patient, RN notes reviewed Mode of arrival: ambulatory Limitations: no limitations - History of Present Illness Initial Comments: This is a 48-year-old male presenting with right knee pain/injury x 4 days. Patient states he was being bitten by dog on his right arm when he hyperextended his right knee also causing it to adduct excessively. Patient states he has been weightbearing which causes more pain, stating knee pain is worse at night when in bed (10 out of 10). Patient endorses throbbing pain and swelling, especially above the right patella. Endorses some pain relief with cold compress and ibuprofen. Patient denies clicking, popping, knee giving out. Denies ecchymosis, open wound, erythema. MD Complaint: knee injury Onset/Timin -: days(s) Injury: Knee: Right Type of Injury: other (Hyperextension) Severity: mild Improves With: NSAID, cold therapy Worsens With: weight bearing Associated Symptoms: swelling, able to partially bear weight, ambulatory Treatments Prior to Arrival: cold therapy, NSAIDS - Related Data Home Medications Medication Instructions Recorded Confirmed Ergocalciferol (Vitamin D2) 1,250 mcg PO Q7D 07/24/24 07/24/24 [Drisdol (50,000 Iu)] HYDROcodone/APAP 5-325MG [[place] 1 - 2 tab PO DIRECTED PRN 07/24/24 07/24/24 5-325] Ibuprofen [Motrin] 800 mg PO Q6H PRN 07/24/24 07/24/24 Silver Sulfadiazine [Silver 1 applic TOPICAL DIRECTED 07/24/24 07/24/24 Sulfadiazine 1%] Previous Rx's Medication Instructions Recorded Amoxic-Pot Clav 875-125Mg 1 tab PO Q12HR 10 Days #20 tab 07/26/24 [Augmentin 875-125] Allergies Allergy/AdvReac Type Severity Reaction Status Date / Time No Known Allergies Allergy Verified 08/05/24 09:57 Review of Systems ROS Statement: Those systems with pertinent positive or pertinent negative responses have been documented in the HPI. ROS Other: All systems not noted in ROS Statement are negative. Past Medical History Past Medical History: No Reported History, Asthma Additional Past Medical History / Comment(s): liver issues, TBI, brain bleed History of Any Multi-Drug Resistant Organisms: None Reported Past Surgical History: No Surgical Hx Reported, Orthopedic Surgery Additional Past Surgical History / Comment(s): broken ribs and left clavicle, hairline fx to skull, tibia fx Past Anesthesia/Blood Transfusion Reactions: No Reported Reaction Past Psychological History: No Psychological Hx Reported Smoking Status: Never smoker Past Alcohol Use History: None Reported Past Drug Use History: Marijuana General Exam Limitations: no limitations General appearance: alert, in no apparent distress Head exam: Present: atraumatic, normocephalic, normal inspection Eye exam: Present: normal appearance, PERRL, EOMI. Absent: scleral icterus, conjunctival injection, periorbital swelling ENT exam: Present: normal exam, mucous membranes moist Neck exam: Present: normal inspection. Absent: tenderness, meningismus, lymphadenopathy Respiratory exam: Present: normal lung sounds bilaterally. Absent: respiratory distress, wheezes, rales, rhonchi, stridor Cardiovascular Exam: Present: regular rate, normal rhythm, normal heart sounds. Absent: systolic murmur, diastolic murmur, rubs, gallop, clicks GI/Abdominal exam: Present: soft, normal bowel sounds. Absent: distended, te nderness, guarding, rebound, rigid Extremities exam: Present: full ROM, tenderness (Positive suprapatellar and medial suprapatellar edema and tenderness. Negative ecchymosis or erythema or crepitus. Negative Beny's, varus/valgus. Positive Quinton's test. Full range of motion. Right knee flexion and extension strength 5 out of 5.), normal capillary refill, joint swelling. Absent: pedal edema, calf tenderness Back exam: Present: normal inspection Neurological exam: Present: alert, oriented X3, CN II-XII intact Psychiatric exam: Present: normal affect, normal mood Skin exam: Present: warm, dry, intact, normal color. Absent: rash Course Vital Signs 08/05/24 09:55 Temperature 98.1 F Pulse Rate 78 Respiratory 20 Rate Blood Pressure 149/93 O2 Sat by Pulse 99 Oximetry Medical Decision Making - Medical Decision Making Was pt. sent in by a medical professional or institution (, PA, B[employer] GR[employer]ER, urgent care, hospital, or alf...) When possible be specific @ -[No] Did you speak to anyone other than the patient for history (EMS, parent, family, police, friend...)? What history was obtained from this source @ -[No] Did you review nursing and triage notes (agree or disagree)? Why? @ -[I reviewed and agree with nursing and triage notes] Were old charts reviewed (outside hosp., previous admission, EMS record, old EKG, old radiological studies, urgent care reports/EKG's, alf records)? Report findings @ -[No old charts were reviewed] Differential Diagnosis (chest pain, altered mental status, abdominal pain women, abdominal pain men, vaginal bleeding, weakness, fever, dyspnea, syncope, headache, dizziness, GI bleed, back pain, seizure, CVA, palpatations, mental health, musculoskeletal)? @ -Patellar tendon sprain, patellar tendon partial/full tear, MCL sprain, MCL partial/full tear, meniscus tear, patellar pain syndrome, knee hyperextension, patellar dislocation EKG interpreted by me (3pts min.). @ -Not done X-rays interpreted by me (1pt min.). @ -Right knee x-ray shows suprapatellar bursal edema indicating possible internal derangement. Negative fractures or dislocation CT interpreted by me (1pt min.). @ -[None done] U/S interpreted by me (1pt. min.). @ -[None done] What testing was considered but not performed or refused? (CT, X-rays, U/S, labs)? Why? @ -[None] What meds were considered but not given or refused? Why? @ -[None] Did you discuss the management of the patient with other professionals (professionals i.e. , PA, [employer], lab, RT, psych nurse, social research assistant, permanent mold supervisor, teacher, drug abuse resistance education officer, manager case)? Give summary @ -[No] Was smoking cessation discussed for >3mins.? @ -[No] Was critical care preformed (if so, how long)? @ -[No] Were there social determinants of health that impacted care today? How? (Homelessness, low income, unemployed, alcoholism, drug addiction, transportation, low edu. Level, literacy, decrease access to med. care, senior living, rehab)? @ -[No] Was there de-escalation of care discussed even if they declined (Discuss DNR or withdrawal of care, Hospice)? DNR status @ -[No] What co-morbidities impacted this encounter? (DM, HTN, Smoking, COPD, CAD, Cancer, CVA, ARF, Chemo, Hep., AIDS, mental health diagnosis, sleep apnea, morbid obesity)? @ -[None] Was patient admitted / discharged? Hospital course, mention meds given and route, prescriptions, significant lab abnormalities, going to OR and other pertinent info. @ -Discharged. X-ray for right knee performed. Arun wrap ordered for stabilization. Patient referred to Dr. Niño for MRI imaging. Advised continue NSAIDs and cold therapy for pain and edema. Advised RICE. Undiagnosed new problem with uncertain prognosis? @ -[No] Drug Therapy requiring intensive monitoring for toxicity (Heparin, Nitro, Insulin, Cardizem)? @ -[No] Were any procedures done? @ -[No] Diagnosis/symptom? @ -Femoral ligament sprain Acute, or Chronic, or Acute on Chronic? @ -Acute Uncomplicated (without systemic symptoms) or Complicated (systemic symptoms)? @ -Uncomplicated Side effects of treatment? @ -[No] Exacerbation, Progression, or Severe Exacerbation? @ -[No] Poses a threat to life or bodily function? How? (Chest pain, [place], [place], pneumonia, PE, COPD, DKA, ARF, appy, cholecystitis, CVA, Diverticulitis, Homicidal, Suicidal, threat to staff... and all critical care pts) @ -[No] Disposition Clinical Impression: Right knee sprain Disposition: HOME SELF-CARE Condition: Good Instructions (If sedation given, give patient instructions): Knee Sprain (ED), Knee Pain (ED) Is patient prescribed a controlled substance at d/c from ED?: No Referrals: Tal Niño MD [Primary Care Provider] - 1-2 days Time of Disposition: 11:14
--- NOTE | 2024-08-05 10:59 | XR ---
EXAMINATION TYPE: XR knee complete RT DATE OF EXAM: 08/05/2024 COMPARISON: NONE HISTORY: Pain TECHNIQUE: Three views are submitted. FINDINGS: Joint spaces are preserved. Osseous structures are intact. No acute fracture seen. Sclerotic densi ty in the proximal diaphysis of the tibia likely related to benign bone island. Small suprapatellar b ursal fluid collection. IMPRESSION: 1. No acute fracture or dislocation. 2. Small suprapatellar bursal fluid collection. This can occasionally be associated with internal anu angement of knee. Consider follow-up MRI as clinically warranted. 3. Nonspecific intraosseous sclerotic lesion proximal tibia likely related to benign bone island or h ealed fibroxanthoma. [facility], , 08/05/2024 10:57 AM
[2024-08-05 11:19] VITALS: BP 143/75; PULSE 75; RESP 18
== END 2024-08-05 11:19 | disposition home or self-care (01) ==
LOC: EC 09:45
CPT/HCPCS: 99283

== ENCOUNTER → 2024-09-13 | Outpatient (CLI) | payer OTHER ==
--- NOTE | 2024-09-13 20:43 | MR ---
EXAMINATION TYPE: MR knee RT wo con DATE OF EXAM: 09/13/2024 COMPARISON: Right knee x-ray August 05, 2024 HISTORY: Right knee pain, swelling and locking TECHNIQUE: Multiplanar, multisequence images of the knee is performed without IV contrast. FINDINGS: MEDIAL MENISCUS: Truncated appearance posterior horn with abnormal signal from body extending to infe rior articular surface. LATERAL MENISCUS: Increased signal anterior and posterior horns with signal in the posterior horn def initively extending to articular surface. CRUCIATE LIGAMENTS: The anterior and posterior cruciate ligaments are intact and unremarkable. COLLATERAL LIGAMENTS: The medial collateral ligament and lateral collateral ligament complex are inta ct and unremarkable. EXTENSOR MECHANISM: Visualized quadriceps and patellar tendons are intact. EFFUSION: No significant suprapatellar joint effusion. POPLITEAL CYST: Moderate-sized septated popliteal/alvarado cyst sagittal image 31. TRICOMPARTMENT SPACES: Mild to moderate tricompartment joint space loss and spurring. CARTILAGE: Tricompartmental articular cartilage fairly well-preserved. BONE MARROW SIGNAL: No focal abnormal marrow signal is appreciated. OTHER: Some increased edema superior aspect of Hoffa's fat pad. Increased subcutaneous edema anterior infrapatellar region IMPRESSION: 1. Full-thickness tear central body into the posterior horn of the medial meniscus. 2. Full-thickness tear posterior horn lateral meniscus. 3. At least intrasubstance tearing anterior horn of lateral meniscus. 4. Mild to moderate tricompartment degenerative changes are present as detailed above. 5. Moderate size popliteal cyst. 6. Possible Hoffa fat pad impingement syndrome, correlate clinically. [facility], Workstation: [id number], 09/13/2024 8:40 PM
== END | disposition home or self-care (01) ==
LOC: RADMRIMAIN 18:07
PROVIDERS: ATTEND Orthopaedic Surgery
DX: S83.241A Other tear of medial meniscus, current injury, right knee, initial encounter (principal); S83.011A Lateral subluxation of right patella, initial encounter; M17.11 Unilateral primary osteoarthritis, right knee; M71.21 Synovial cyst of popliteal space [Baker], right knee